=== PATIENT | male | born 1990 | race Caucasian/White ===

== ENCOUNTER 2018-06-05 17:14 | Inpatient (IN) | payer OTHER, SELFPAY ==
[2018-06-05 17:17] VITALS: BP 148/74; PULSE 76; RESP 16; TEMP 36.6; O2SAT 95; BMI 36.8
[2018-06-05] MEDS: Ondansetron 4 MG/2 ML Vial IV (17:51)
[2018-06-05] MEDS: 0.9% Normal Saline 1,000 ML 1000 ML IV (17:51)
[2018-06-05 18:06] LABS: Absolute Lymphocyte Count 3.03 X10^3/ul (0.83-4.51); Absolute Neutrophil Count 5.6 X10^3/uL (2.0-7.7); Basophil# 0.02 X10^3/uL; Basophil% 0.2 % (0-1); Eosinophil# 0.15 X10^3/uL; Eosinophils% 1.6 % (0-5); Hematocrit 47.9 % (40-54); Hemoglobin 16.2 g/dl (13.0-16.5); Lymphocyte # 3.03 X10^3/ul (4.0); Lymphocyte % 32.3 % (19-41); Mean Corp Hgb Conc 33.8 g/gl (32-36); Mean Corpuscular Hgb 29.6 pg (27.0-32.0); Mean Corpuscular Volume 87.4 fL (80-94); Mean Platelet Vol. 10.8 fl (6.2-12.0); Monocyte% 6.4 % (0-10); Neutrophil # 5.57 X10^3/uL (2.7-7.7); Neutrophil % 59.4 % (47-70); Platelet Count 200 K/mm3 (150-450); RBC Distribution Width CV 14.4 % (11.6-14.6); RBC Distribution Width SD 45.9 fl (35.1-43.9); Red Blood Count 5.48 M/mm3 (4.6-6.2); White Blood Count 9.4 K/mm3 (4.4-11.0)
[2018-06-05 18:09] LABS: POSITIVE COUNT NO; POSITIVE DIFFERENTIAL NO; POSITIVE MORPHOLOGY NO
[2018-06-05 18:24] LABS: ALB/GLOB Ratio 1.1 RATIO (0.9-2.4); AST(SGOT) 40 U/L (15-37); Alanine Aminotransfer ALT/SGPT 60 U/L (16-61); Albumin, Serum 3.9 g/dL (3.2-5.0); Alkaline Phosphatase 82 U/L (45-117); Anion Gap 9 (5-15); BUN 8 mg/dL (7-18); Calcium,Total 8.8 mg/dL (8.5-10.1); Chloride 102 mmol/L (98-107); Creatinine, Serum 0.89 mg/dL (0.70-1.30); EST Glomerular Filtration Rate 109 mL/min (>60); Est Glom Filt Rate - Afr Amer 132 mL/min (>60); Estimated Creatinine Clearance 131.61 ml/min; Globulin 3.7 g/dL (2.2-4.2); Glucose 126 mg/dL (74-106); Lipase 141 U/L (73-393); Potassium 3.8 mmol/L (3.5-5.1); Protein, Total 7.6 g/dL (6.4-8.2); Sodium Level 137 mmol/L (136-145)
[2018-06-05 19:02] LABS: Amphetamine Urine VISTA NEGATIVE (<1000 ng/mL); Barbiturate Urine VISTA NEGATIVE (< 200 ng/mL); Benzodiazepine Urine VISTA NEGATIVE (< 200 ng/mL); Cocaine Urine VISTA NEGATIVE (< 300 ng/mL); Ecstacy Urine VISTA POSITIVE (< 500 ng/mL); Methadone Urine VISTA NEGATIVE (< 300 ng/mL); PCP Urine VISTA NEGATIVE (< 25 ng/mL); THC Urine VISTA NEGATIVE (< 50 ng/mL); Vista UDS pH Range 5
--- NOTE | 2018-06-05 19:58 | ED.VISSUMM ---
- ER Visit Summary Date of Service: 06/05/18 Chief Complaint: [Requesting detox from alcohol] History of Present Illness: The patient is a 28 M presents to the emergency department stating that he would like to have detox. Patient states that he last went through an inpatient program in [facility] on May 10. Patient states that he called [facility] and was told to come to the emergency department. Patient states that his last drink was about 3 hours ago. Patient normally drinks about 30 beers a day. Patient states that he is feeling shaky. Complains of noises bothering him and bright lights bothering him. Patient has pins and needle sensation to skin. Complains of feeling sweaty.] Physical Examination: [HEENT-PERRLA, EOMI. Cranial nerves II through XII grossly intact. TMs clear. Mucous membranes moist. No adenopathy. Cardiovascular-regular rate and rhythm without murmur or ectopy Lungs-clear to auscultation, chest wall stable without crepitus or subcu emphysema Abdomen-normoactive bowel sounds, soft, nontender, no rebound or rigidity, no peritoneal signs. Extremities-intact ?4, normal range of motion, normal pulses, atraumatic] Test Results: [CBC with differential obtained showed an white blood cell count of 9.4, hemoglobin 16, hematocrit 40, placed 200. Chemistries unremarkable. LFTs were normal. Lipase is 141. Toxicology screen was positive for MDMA. Alcohol was 207.] Emergency Department Course and Treatment: [Patient was given Zofran 4 mg IV.] Treatment Plan: [Patient case was discussed with hospitalist will evaluate patient for admission] Disposition: [Admit] Impression: [Alcohol withdrawal Request for detox from alcohol to [facility]] This note was generated with [employer] dictation software. It may contain incorrect words, spelling, and punctuation that were not noted in review of the chart prior to signing ED Disposition - Plan for ED Patient: Chief Complaint: Substance Abuse Referrals: Arturo Doctor,Out of [Primary Care Provider] -
--- NOTE | 2018-06-05 20:02 | ED.DCSUM_ITS ---
- ER Visit Summary Date of Service: 06/05/18 Chief Complaint: [Requesting detox from alcohol] History of Present Illness: The patient is a 28 M presents to the emergency department stating that he would like to have detox. Patient states that he last went through an inpatient program in [facility] on May 10. Patient states that he called [facility] and was told to come to the emergency department. Patient states that his last drink was about 3 hours ago. Patient normally drinks about 30 beers a day. Patient states that he is feeling shaky. Complains of noises bothering him and bright lights bothering him. Patient has pins and needle sensation to skin. Complains of feeling sweaty.] Physical Examination: [HEENT-PERRLA, EOMI. Cranial nerves II through XII grossly intact. TMs clear. Mucous membranes moist. No adenopathy. Cardiovascular-regular rate and rhythm without murmur or ectopy Lungs-clear to auscultation, chest wall stable without crepitus or subcu emphysema Abdomen-normoactive bowel sounds, soft, nontender, no rebound or rigidity, no peritoneal signs. Extremities-intact ?4, normal range of motion, normal pulses, atraumatic] Test Results: [CBC with differential obtained showed an white blood cell count of 9.4, hemoglobin 16, hematocrit 40, placed 200. Chemistries unremarkable. LFTs were normal. Lipase is 141. Toxicology screen was positive for MDMA. Alcohol was 207.] Emergency Department Course and Treatment: [Patient was given Zofran 4 mg IV.] Treatment Plan: [Patient case was discussed with hospitalist will evaluate patient for admission] Disposition: [Admit] Impression: [Alcohol withdrawal Request for detox from alcohol to [facility]] This note was generated with [employer] dictation software. It may contain incorrect words, spelling, and punctuation that were not noted in review of the chart prior to signing ED Disposition - Plan for ED Patient: Chief Complaint: Substance Abuse Referrals: Arturo Doctor,Out of [Primary Care Provider] -
[2018-06-05 20:06] VITALS: BP 120/68; PULSE 74; RESP 18; TEMP 36.6; O2SAT 98
[2018-06-05 20:11] VITALS: BP 120/68; PULSE 74; RESP 18; TEMP 36.6; O2SAT 98
[2018-06-05 21:00] VITALS: BP 116/61; PULSE 72; RESP 16; TEMP 37; O2SAT 97
[2018-06-05 21:05] VITALS: BMI 36.8
[2018-06-05 21:07] VITALS: BP 116/61; PULSE 72; RESP 16; TEMP 37; O2SAT 97
--- NOTE | 2018-06-05 21:21 | PCM.HP.STD ---
Problem List (1) Alcohol dependence with withdrawal Status: Acute History of Present Illness Date of Admission: 06/05/18 Chief Complaint: alcohol withdrawal symptoms The patient is a 28 year old M with a significant history of morbid obesity s/p gastric bypass surgery; depression; anxiety and hypertension who presented with alcohol withdrawal symptoms that started few hours before his admission. Patient reported that his last drink was at 3 PM on the day of admission. He drinks 30 bottles of beer per day. He reports that his withdrawal symptoms include nausea, vomiting, shakiness, headache, feeling cold, restless leg, diarrhea, restless legs and abdominal pain. Reportedly in the past he has been to two alcohol rehabilitation centers. His last rehabilitation was at [facility] in [place]. His last rehabilitation was around May 10 - May 17 2018. At the emergency department his ethanol level was 207 and MDMA was positive on urinary screen. His CIWA score at the emergency department was 23. Per emergency department doctor talked to [facility] and he was accepted into the [facility] program. Past Medical History Medical History: Medical History (Last Updated 06/05/18 @ 21:31 by Jose Smith MD) Hypertension I10 Allergies No Known Allergies Allergy (Verified 06/05/18 17:17) Home Medications: Ambulatory Orders Medication Instructions Recorded Bupropion HCl [Bupropion Xl] 300 mg PO DAILY 06/05/18 Metoprolol Succinate 25 mg PO DAILY 06/05/18 Vitamin E 400 unit PO DAILY 06/05/18 Surgical History: gastric bypass Lives: With Family Smoking Status: Current every day smoker Tobacco Use: Cigarettes - *Family History Maternal History Items: Hypertension, - - Depression; anxiety; and depression Paternal History Items: Heart Disease, - - Depression; anxiety; and depression Review of Systems Constitutional: Reports: Anorexia, Chills. Denies: Fever, Weight Change HEENT: Reports: Head Aches. Denies: Sinus Congestion, Sinus Drainage Cardiovascular: Denies: Chest Pain, Palpitations Respiratory: Denies: Cough, Shortness of breath at rest, Sputum production Gastrointestinal: Reports: Abdominal Pain, Diarrhea, Nausea, Vomiting Genitourinary: Denies: Dysuria Musculoskeletal: Denies: Joint Pain, Joint Tenderness Skin: Denies: Rash, Wounds Neurological: Denies: Numbness, Tingling, Focal weakness Psychiatric: Reports: Anxiety, Depression. Denies: Homicidal Ideations, Suicidal Ideations Hematologic/ Lymphatic: Denies: Easy Bruising, Easy Bleeding VTE Information - Inpt Only VTE Present on Admission: No VTE Mechan Device Prophylaxis: None VTE Pharm Prophylaxis ordered?: Yes Patient Problems: Active and Suspected Problems (Last Updated 06/05/18 @ 21:31 by Jose Smith MD) Alcohol dependence with withdrawal (Acute) - Physical Exam General: Alert, Oriented x3, Cooperative HEENT: Atraumatic, PERRLA, EOMI, Normocephalic Neck: Supple, No JVD, Negative Carotid Bruits Lungs: Clear to auscultation, Normal air movement Cardiovascular: Regular rate, No murmurs Abdomen: Bowel Sounds Present, Soft, Non Tender Extremities: No edema, Capillary Refill Less than 3 Seconds Skin: No rashes, No breakdown Musculoskeletal: No Tenderness to Palpation of Joints or Extremities Neurological: Neuro grossly intact, - - Tremors Psych/Mental Status: Normal Affect, Appropriate Vital Signs Temp Pulse Resp BP Pulse Ox 98.6 F 72 16 116/61 97 06/05/18 21:07 06/05/18 21:07 06/05/18 21:07 06/05/18 21:07 06/05/18 21:07 Oxygen Delivery Method Room Air Weight: 119.748 kg Body Mass Index (BMI) 36.8 Laboratory Tests Past 24 Hrs 06/05/18 06/05/18 06/05/18 17:53 17:53 17:53 WBC 9.4 RBC 5.48 Hgb 16.2 Hct 47.9 MCV 87.4 MCH 29.6 MCHC 33.8 RDW 14.4 RDW Differential 45.9 H Plt Count 200 MPV 10.8 Immature Gran % (Auto) 0.100 Neut % (Auto) 59.4 Lymph % (Auto) 32.3 [place] % (Auto) 6.4 Eos % (Auto) 1.6 Baso % (Auto) 0.2 Absolute Neuts (auto) 5.6 Absolute Lymphs (auto) 3.03 Total Counted Not Reportable Sodium 137 Potassium 3.8 Chloride 102 Carbon Dioxide 26.0 Anion Gap 9 BUN 8 Creatinine 0.89 Estim Creat Clear Calc 131.61 Est GFR (MDRD) Af Amer 132 Est GFR (MDRD) Non-Af 109 BUN/Creatinine Ratio 9.0 L Glucose 126 H Calcium 8.8 Total Bilirubin 0.60 AST 40 H ALT 60 Alkaline Phosphatase 82 Total Protein 7.6 Albumin 3.9 Globulin 3.7 Albumin/Globulin Ratio 1.1 Lipase 141 Urine Opiates Screen Urine Methadone Screen Ur Barbiturates Screen Ur Phencyclidine Scrn Ur Amphetamines Screen U Methamphetamin-MDMA U Benzodiazepines Scrn Urine Cocaine Screen U Cannabinoids Screen Ur Drug Screen Comment Ethyl Alcohol 207.0 06/05/18 18:37 WBC RBC Hgb Hct MCV MCH MCHC RDW RDW Differential Plt Count MPV Immature Gran % (Auto) Neut % (Auto) Lymph % (Auto) [place] % (Auto) Eos % (Auto) Baso % (Auto) Absolute Neuts (auto) Absolute Lymphs (auto) Total Counted Sodium Potassium Chloride Carbon Dioxide Anion Gap BUN Creatinine Estim Creat Clear Calc Est GFR (MDRD) Af Amer Est GFR (MDRD) Non-Af BUN/Creatinine Ratio Glucose Calcium Total Bilirubin AST ALT Alkaline Phosphatase Total Protein Albumin Globulin Albumin/Globulin Ratio Lipase Urine Opiates Screen NEGATIVE Urine Methadone Screen NEGATIVE Ur Barbiturates Screen NEGATIVE Ur Phencyclidine Scrn NEGATIVE Ur Amphetamines Screen NEGATIVE U Methamphetamin-MDMA POSITIVE H U Benzodiazepines Scrn NEGATIVE Urine Cocaine Screen NEGATIVE U Cannabinoids Screen NEGATIVE Ur Drug Screen Comment Ethyl Alcohol Assessment/Plan All Active Problems (Last Updated 06/05/18 @ 21:31 by Jose Smith MD) Alcohol dependence with withdrawal (Acute) The patient is a 28 year old M with a significant history of morbid obesity s/p gastric bypass surgery; depression; anxiety and hypertension who presented with alcohol withdrawal symptoms found to have high ethanol level. Alcohol dependence and withdrawal. We will place patient on CIWA protocol with Librium taper. We will continue his metoprolol which should help with withdrawal symptoms too. Folic acid and thiamine ordered. Imodium as needed Requip as needed for restless legs. Anxiety and depression Bupropion continued Positive MDMA Patient denies any use of methamphetamine. Likely false positive from Wellbutrin use. Hypertension On admission his blood pressure was fairly controlled. Metoprolol continued. Tobacco abuse The patient is already on bupropion for anxiety and depression but still smoking. Counseled Nicotine patch ordered. Dry skin Vitamin E continued. DVT Prophylaxis Low risk Ambulate. Code Visit Inpatient E&M: 56285 Init Hosp L3
[2018-06-05] MEDS: hydrOXYzine PAM 25 MG Capsule 50 MG PO (21:28)
[2018-06-05] MEDS: chlordiazePOXIDE 25 MG Capsule PO (21:38)
[2018-06-05 21:47] VITALS: BP 116/61; PULSE 72; RESP 16; TEMP 37
[2018-06-06] VITALS (12 sets, daily range): BP systolic 104–133; BP diastolic 64–81; PULSE 63–99; RESP 16–18; TEMP 36.4–36.8; O2SAT 95–98
[2018-06-06] MEDS: Acetaminophen 325 MG Tablet 650 MG PO (00:35)
[2018-06-06] MEDS: chlordiazePOXIDE 25 MG Capsule PO ×4 (02:42→22:39)
[2018-06-06] MEDS: Dicyclomine 10 MG Capsule 20 MG PO ×3 (02:50→22:42)
[2018-06-06] MEDS: Ondansetron 4 MG/2 ML Vial IV ×2 (02:50→18:26)
[2018-06-06] MEDS: Pramipexole Di-HCl 0.125 MG Tablet PO ×2 (02:55→13:44)
[2018-06-06] MEDS: hydrOXYzine PAM 25 MG Capsule 50 MG PO ×2 (05:55→18:13)
[2018-06-06] MEDS: Folic Acid 1 MG Tablet PO (08:52)
[2018-06-06] MEDS: Multivitamins,Therapeutic Tablet 1 TABLET PO (08:52)
[2018-06-06] MEDS: Vitamin E 400 UNITS Capsule PO (08:53)
[2018-06-06] MEDS: Thiamine Hydrochloride 100 MG Tablet PO (08:53)
[2018-06-06] MEDS: buPROPion (XL) 300 MG TABLET.XL PO (08:53)
[2018-06-06] MEDS: Metoprolol(XL)Succ 25 MG Tablet PO (08:57)
[2018-06-06] MEDS: 0.9% NaCl Peripheral Flush Adult/Peds IV ×3 (09:06→22:39)
--- NOTE | 2018-06-06 09:50 | PN_ITS ---
Patient Problems: Active and Suspected Problems (Last Updated 06/05/18 @ 21:52 by Zafar Harrison) Alcohol dependence with withdrawal (Acute) Subjective: Chief complaint: Follow-up after admission for acute alcohol intoxication/withdrawal. Patient seen and examined. No acute events overnight. He is still symptomatic, no significant improvement. He is shaky but slightly improved compared to last night. Complains of intermittent abdominal cramps. His vital signs are stable. - Physical Exam General: Alert, Oriented x3, Cooperative, No apparent distress HEENT: Atraumatic, PERRLA, EOMI, Normocephalic Oral: Moist Mucosa, No Gingival or Mucosal Lesions/ Ulcerations Neck: Supple, No JVD, Negative Carotid Bruits, Trachea Midline, Thyroid Normal Size and Texture Lungs: Clear to auscultation, Normal air movement, No rhonchi, No wheeze, No rales Cardiovascular: Regular rate, Regular Rhythm, Normal S1, Normal S2, No murmurs, PMI Normal Abdomen: Bowel Sounds Present, Soft, Non Tender, Non-Distended, No Hepato- splenomegaly Extremities: No clubbing, No cyanosis, No edema Skin: No rashes, No breakdown Lymphatic: No Cervical, Supraclavicular, or Inguinal Adenopathy Neurological: Cranial nerves II-XII grossly intact, Motor Exam 5/5 strength throughout Psych/Mental Status: Normal Affect, Appropriate, Alert and oriented to time, place, person, mood and affect Vital Signs Temp Pulse Resp BP Pulse Ox 98.2 F 63 16 115/70 96 06/06/18 06:00 06/06/18 08:57 06/06/18 06:00 06/06/18 06:00 06/06/18 07:00 Oxygen Delivery Method Room Air Weight: 264 lb Body Mass Index (BMI) 36.8 Intake and Output for Last 24 Hours 06/04/18 06/05/18 06/06/18 23:59 23:59 23:59 Intake Total 1999 Balance 1999 Laboratory Tests Past 24 Hrs 06/05/18 06/05/18 06/05/18 17:53 17:53 17:53 WBC 9.4 RBC 5.48 Hgb 16.2 Hct 47.9 MCV 87.4 MCH 29.6 MCHC 33.8 RDW 14.4 RDW Differential 45.9 H Plt Count 200 MPV 10.8 Immature Gran % (Auto) 0.100 Neut % (Auto) 59.4 Lymph % (Auto) 32.3 [place] % (Auto) 6.4 Eos % (Auto) 1.6 Baso % (Auto) 0.2 Absolute Neuts (auto) 5.6 Absolute Lymphs (auto) 3.03 Total Counted Not Reportable Sodium 137 Potassium 3.8 Chloride 102 Carbon Dioxide 26.0 Anion Gap 9 BUN 8 Creatinine 0.89 Estim Creat Clear Calc 131.61 Est GFR (MDRD) Af Amer 132 Est GFR (MDRD) Non-Af 109 BUN/Creatinine Ratio 9.0 L Glucose 126 H Calcium 8.8 Total Bilirubin 0.60 AST 40 H ALT 60 Alkaline Phosphatase 82 Total Protein 7.6 Albumin 3.9 Globulin 3.7 Albumin/Globulin Ratio 1.1 Lipase 141 Urine Opiates Screen Urine Methadone Screen Ur Barbiturates Screen Ur Phencyclidine Scrn Ur Amphetamines Screen U Methamphetamin-MDMA U Benzodiazepines Scrn Urine Cocaine Screen U Cannabinoids Screen Ur Drug Screen Comment Ethyl Alcohol 207.0 06/05/18 18:37 WBC RBC Hgb Hct MCV MCH MCHC RDW RDW Differential Plt Count MPV Immature Gran % (Auto) Neut % (Auto) Lymph % (Auto) [place] % (Auto) Eos % (Auto) Baso % (Auto) Absolute Neuts (auto) Absolute Lymphs (auto) Total Counted Sodium Potassium Chloride Carbon Dioxide Anion Gap BUN Creatinine Estim Creat Clear Calc Est GFR (MDRD) Af Amer Est GFR (MDRD) Non-Af BUN/Creatinine Ratio Glucose Calcium Total Bilirubin AST ALT Alkaline Phosphatase Total Protein Albumin Globulin Albumin/Globulin Ratio Lipase Urine Opiates Screen NEGATIVE Urine Methadone Screen NEGATIVE Ur Barbiturates Screen NEGATIVE Ur Phencyclidine Scrn NEGATIVE Ur Amphetamines Screen NEGATIVE U Methamphetamin-MDMA POSITIVE H U Benzodiazepines Scrn NEGATIVE Urine Cocaine Screen NEGATIVE U Cannabinoids Screen NEGATIVE Ur Drug Screen Comment Ethyl Alcohol Medical Necessity - Tobacco Use Smoking Status: Current every day smoker Tobacco Use: Cigarettes Assessment/Plan All Active Problems (Last Updated 06/05/18 @ 21:52 by Zafar Harrison) Alcohol dependence with withdrawal (Acute) This is a 28 years old male patient presented to the emergency room requesting admission for alcohol detoxification and he was admitted for acute alcohol intoxication/impending withdrawal for treatment. #1 acute alcohol intoxication/withdrawal: Patient has been having symptoms of withdrawal although his last drink was only yesterday afternoon. On admission, his blood alcohol level was 207. He is on folic acid, thiamine, Librium, as needed Mirapex, Vistaril, Imodium, Bentyl and multivitamins. His vital signs are stable. He is still symptomatic. His urine drug screen was positive for methamphetamines. His routine blood work was unremarkable as well as LFT and lipase. I expect that his withdrawal symptoms would worsen in the next 24-48 hours. Plan: Continue same treatment, may need to start him on as needed Ativan if his symptoms start to worsen. #2 hypertension: Blood pressure stable, continue metoprolol. #3 history of atrial fibrillation: This was years ago before his gastric bypass surgery. At this time, his sinus rhythm, rate is controlled. Continue metoprolol. He is not on any anticoagulation likely because of lone A. fib without other medical comorbidities. #4 morbid obesity: Status post gastric bypass surgery. #5 tobacco abuse: Continue NicoDerm patch. #6 DVT prophylaxis: Low-risk patient, no prophylaxis indicated. This note was generated with [employer] dictation software. It may contain incorrect words, spelling, and punctuation that were not noted in checking the note before signing. Code Visit Inpatient E&M: 74128 Subs Hosp L2
--- NOTE | 2018-06-06 15:59 | CHAPLAIN ---
Type of Pastoral Visit _x__ Initial Visit ___ Follow-up Visit ___ On-call Visit ___ General Patient Visit ___ Spiritual Assessment ___ Family Conference ___ Bereavement ___ Rapid Response ___ Code Blue ___ Other (describe below) Pastoral Care Referral From _x__ Patient ___ Family ___ Nurse ___ Physician ___ Certified Physician'S Assistant ___ Environmental Health Nurse ___ Other (describe below) Sacrament/Intervention _x__ Active listening ___ Anointing ___ Cheondoism ___ Bereavement ___ Communion _x__ Christine exploration ___ _x__ Life review _x__ Prayer ___ Reconciliation ___ Sacrament of Sick _x__ Supportive presence ___ Wedding ___ Other (describe below) Pastoral Comments patient is very open to talk about his life history and spoke to mold yard supervisor about traumas, relational issues, and health; pt was a pastoral student earlier in life and was very knowledgeable of his spiritual needs; pt sought child welfare counselor and prayer;
[2018-06-07] MEDS: chlordiazePOXIDE 25 MG Capsule PO ×3 (06:34→22:10)
[2018-06-07 06:37] VITALS: BP 122/72; PULSE 57; RESP 16; TEMP 36.6
--- NOTE | 2018-06-07 08:14 | PCM.PROGNOTE ---
Patient Problems: Active and Suspected Problems (Last Updated 06/05/18 @ 21:52 by Zafar Harrison) Alcohol dependence with withdrawal (Acute) Subjective: Chief complaint: Follow-up after admission for acute alcohol intoxication/withdrawal. Patient seen and examined. No acute events overnight. Today, he is feeling better, less anxious and shaky. He was able to sleep last night. His vital signs are stable. - Physical Exam General: Alert, Oriented x3, Cooperative, No apparent distress HEENT: Atraumatic, PERRLA, EOMI, Normocephalic Oral: Moist Mucosa, No Gingival or Mucosal Lesions/ Ulcerations Neck: Supple, No JVD, Negative Carotid Bruits, Trachea Midline, Thyroid Normal Size and Texture Lungs: Clear to auscultation, Normal air movement, No rhonchi, No wheeze, No rales Cardiovascular: Regular rate, Regular Rhythm, Normal S1, Normal S2, PMI Normal Abdomen: Bowel Sounds Present, Soft, Non Tender, Non-Distended, No Hepato-splenomegaly Extremities: No clubbing, No cyanosis, No edema Skin: No rashes, No breakdown Lymphatic: No Cervical, Supraclavicular, or Inguinal Adenopathy Neurological: Cranial nerves II-XII grossly intact, Neuro grossly intact Psych/Mental Status: Normal Affect, Appropriate, Alert and oriented to time, place, person, mood and affect Vital Signs Temp Pulse Resp BP Pulse Ox 97.8 F 57 L 16 122/72 H 98 06/07/18 06:37 06/07/18 06:37 06/07/18 06:37 06/07/18 06:37 06/06/18 18:00 Oxygen Delivery Method Room Air Weight: 264 lb Body Mass Index (BMI) 36.8 Intake and Output for Last 24 Hours 06/05/18 06/06/18 06/07/18 23:59 23:59 23:59 Intake Total 3275 / 3275 1000 / 1000 Balance 3275 / 3275 1000 / 1000 Medical Necessity - Tobacco Use Smoking Status: Current every day smoker Tobacco Use: Cigarettes Assessment/Plan All Active Problems (Last Updated 06/05/18 @ 21:52 by Zafar Harrison) Alcohol dependence with withdrawal (Acute) This is a 28 years old male patient presented to the emergency room requesting admission for alcohol detoxification and he was admitted for acute alcohol intoxication/impending withdrawal for treatment. #1 acute alcohol intoxication/withdrawal: he is on folic acid, thiamine, Librium, as needed Mirapex, Vistaril, Imodium, Bentyl and multivitamins. On admission, his blood alcohol level was 207. His vital signs are stable. Today, he reported some improvement of his symptoms, less shaky and restless. His urine drug screen was positive for methamphetamines. His routine blood work was unremarkable as well as LFT and lipase. Plan to continue same treatment. #2 hypertension: Blood pressure stable, continue metoprolol. #3 history of atrial fibrillation: This was years ago before his gastric bypass surgery. Remains in sinus rhythm, rate is controlled. Continue metoprolol. He is not on any anticoagulation likely because of lone A. fib without other medical comorbidities. #4 morbid obesity: Status post gastric bypass surgery. #5 tobacco abuse: Continue NicoDerm patch. #6 DVT prophylaxis: Low-risk patient, no prophylaxis indicated. This note was generated with [employer] dictation software. It may contain incorrect words, spelling, and punctuation that were not noted in checking the note before signing. Code Visit Inpatient E&M: 57655 Subs Hosp L2
--- NOTE | 2018-06-07 08:17 | PN_ITS ---
Patient Problems: Active and Suspected Problems (Last Updated 06/05/18 @ 21:52 by Zafar Harrison) Alcohol dependence with withdrawal (Acute) Subjective: Chief complaint: Follow-up after admission for acute alcohol intoxication/withdrawal. Patient seen and examined. No acute events overnight. Today, he is feeling better, less anxious and shaky. He was able to sleep last night. His vital signs are stable. - Physical Exam General: Alert, Oriented x3, Cooperative, No apparent distress HEENT: Atraumatic, PERRLA, EOMI, Normocephalic Oral: Moist Mucosa, No Gingival or Mucosal Lesions/ Ulcerations Neck: Supple, No JVD, Negative Carotid Bruits, Trachea Midline, Thyroid Normal Size and Texture Lungs: Clear to auscultation, Normal air movement, No rhonchi, No wheeze, No rales Cardiovascular: Regular rate, Regular Rhythm, Normal S1, Normal S2, PMI Normal Abdomen: Bowel Sounds Present, Soft, Non Tender, Non-Distended, No Hepato-s plenomegaly Extremities: No clubbing, No cyanosis, No edema Skin: No rashes, No breakdown Lymphatic: No Cervical, Supraclavicular, or Inguinal Adenopathy Neurological: Cranial nerves II-XII grossly intact, Neuro grossly intact Psych/Mental Status: Normal Affect, Appropriate, Alert and oriented to time, place, person, mood and affect Vital Signs Temp Pulse Resp BP Pulse Ox 97.8 F 57 L 16 122/72 H 98 06/07/18 06:37 06/07/18 06:37 06/07/18 06:37 06/07/18 06:37 06/06/18 18:00 Oxygen Delivery Method Room Air Weight: 264 lb Body Mass Index (BMI) 36.8 Intake and Output for Last 24 Hours 06/05/18 06/06/18 06/07/18 23:59 23:59 23:59 Intake Total 3275 / 3275 1000 / 1000 Balance 3275 / 3275 1000 / 1000 Medical Necessity - Tobacco Use Smoking Status: Current every day smoker Tobacco Use: Cigarettes Assessment/Plan All Active Problems (Last Updated 06/05/18 @ 21:52 by Zafar Harrison) Alcohol dependence with withdrawal (Acute) This is a 28 years old male patient presented to the emergency room requesting admission for alcohol detoxification and he was admitted for acute alcohol intoxication/impending withdrawal for treatment. #1 acute alcohol intoxication/withdrawal: he is on folic acid, thiamine, Librium, as needed Mirapex, Vistaril, Imodium, Bentyl and multivitamins. On admission, his blood alcohol level was 207. His vital signs are stable. Today, he reported some improvement of his symptoms, less shaky and restless. His urine drug screen was positive for methamphetamines. His routine blood work was unremarkable as well as LFT and lipase. Plan to continue same treatment. #2 hypertension: Blood pressure stable, continue metoprolol. #3 history of atrial fibrillation: This was years ago before his gastric bypass surgery. Remains in sinus rhythm, rate is controlled. Continue metoprolol. He is not on any anticoagulation likely because of lone A. fib without other medical comorbidities. #4 morbid obesity: Status post gastric bypass surgery. #5 tobacco abuse: Continue NicoDerm patch. #6 DVT prophylaxis: Low-risk patient, no prophylaxis indicated. This note was generated with [employer] dictation software. It may contain incorrect words, spelling, and punctuation that were not noted in checking the note before signing. Code Visit Inpatient E&M: 35147 Subs Hosp L2
[2018-06-07] MEDS: 0.9% NaCl Peripheral Flush Adult/Peds IV (09:49)
[2018-06-07] MEDS: Multivitamins,Therapeutic Tablet 1 TABLET PO (09:58)
[2018-06-07] MEDS: Vitamin E 400 UNITS Capsule PO (09:58)
[2018-06-07] MEDS: buPROPion (XL) 300 MG TABLET.XL PO (09:58)
[2018-06-07] MEDS: Folic Acid 1 MG Tablet PO (09:58)
[2018-06-07 09:59] VITALS: PULSE 62
[2018-06-07] MEDS: Thiamine Hydrochloride 100 MG Tablet PO (09:59)
[2018-06-07] MEDS: Metoprolol(XL)Succ 25 MG Tablet PO (09:59)
[2018-06-07 10:00] VITALS: BP 122/76; PULSE 62; RESP 16; TEMP 36.7
[2018-06-07] MEDS: hydrOXYzine PAM 25 MG Capsule 50 MG PO ×2 (10:37→17:21)
[2018-06-07] MEDS: Ondansetron 4 MG/2 ML Vial IV (10:37)
[2018-06-07] MEDS: Dicyclomine 10 MG Capsule 20 MG PO (10:37)
[2018-06-07 11:40] VITALS: O2SAT 99
[2018-06-07] MEDS: Pramipexole Di-HCl 0.125 MG Tablet PO (14:20)
--- NOTE | 2018-06-07 14:52 | NURSING ---
IV attempt x2 without success.
[2018-06-07 15:05] VITALS: BP 106/61; PULSE 66; RESP 18; TEMP 36.9
--- NOTE | 2018-06-07 16:32 | CHAPLAIN ---
Type of Pastoral Visit ___ Initial Visit _x__ Follow-up Visit ___ On-call Visit ___ General Patient Visit ___ Spiritual Assessment ___ Family Conference ___ Bereavement ___ Rapid Response ___ Code Blue ___ Other (describe below) Pastoral Care Referral From _x__ Patient ___ Family ___ Nurse ___ Physician ___ Blade Worker ___ Valet Runner ___ Other (describe below) Sacrament/Intervention ___ Active listening ___ Anointing ___ Voodoo ___ Bereavement ___ Communion ___ Christine exploration ___ ___ Life review _x__ Prayer ___ Reconciliation ___ Sacrament of Sick _x__ Supportive presence ___ Wedding ___ Other (describe below) Pastoral Comments
[2018-06-07 22:15] VITALS: BP 117/81; PULSE 65; RESP 16; TEMP 36.6
[2018-06-08 02:59] VITALS: BP 117/83; PULSE 61; RESP 16; TEMP 36.3
[2018-06-08] MEDS: hydrOXYzine PAM 25 MG Capsule 50 MG PO ×2 (02:59→10:06)
--- NOTE | 2018-06-08 08:35 | DCINST_ITS ---
- Discharge Diagnoses Current Active Problems: Current Active and Chronic Problems (Last Updated 06/05/18 @ 21:52 by Zafar Harrison) Alcohol dependence with withdrawal (Acute) You will use the following diet at home:: Regular Your food should be the consistency of: Regular Discharge Activity: Return to Normal Activity Weight Bearing Status: Full weight bearing Call your doctor if you observe: Fever of 101 or Higher, Shortness of breath, Dizziness, Fainting spells, Chest pain, Increased palpitations (irregular heartbeat), Uncontrolled pain Instructions: Alcohol Withdrawal: What to Expect, Alcoholism: How to be Part of the Solution, Alcoholism: Getting Help Allergies/Adverse Reactions: Allergies No Known Allergies Allergy (Verified 06/05/18 17:17) Medications to take at Discharge Bupropion HCl [Bupropion Xl] 300 mg PO DAILY 06/05/18 Metoprolol Succinate 25 mg PO DAILY 06/05/18 Vitamin E 400 unit PO DAILY 06/05/18 Chlordiazepoxide [Librium] 25 mg PO TID PRN PRN #30 cap 06/08/18 Folic Acid 1 mg PO DAILYCM #30 tab 06/08/18 Thiamine Hydrochloride [Vitamin B1] 100 mg PO DAILYCM #30 tab 06/08/18 The following prescriptions were given: Chlordiazepoxide [Librium] 25 mg PO TID PRN PRN #30 cap PRN Reason: Alcohol Withdrawal Folic Acid 1 mg PO DAILYCM #30 tab Thiamine Hydrochloride [Vitamin B1] 100 mg PO DAILYCM #30 tab Primary Care Physician: [facility] Doctor,Out of [Primary Care Provider] - Please follow up with your Primary Care Physician in: 2-4 weeks. Test Results: Test results from this visit will be discussed in further detail at your follow- up appointment, if applicable.
[2018-06-08 09:45] VITALS: PULSE 66
[2018-06-08] MEDS: Metoprolol(XL)Succ 25 MG Tablet PO (09:45)
[2018-06-08] MEDS: Thiamine Hydrochloride 100 MG Tablet PO (09:45)
[2018-06-08] MEDS: Multivitamins,Therapeutic Tablet 1 TABLET PO (09:45)
[2018-06-08] MEDS: Folic Acid 1 MG Tablet PO (09:45)
[2018-06-08] MEDS: Vitamin E 400 UNITS Capsule PO (09:46)
[2018-06-08] MEDS: buPROPion (XL) 300 MG TABLET.XL PO (09:46)
[2018-06-08 09:48] VITALS: BP 131/78; PULSE 66; RESP 18; TEMP 36.6
--- NOTE | 2018-06-08 10:02 | NURSING ---
Pt is Finishing up Breakfast. States My Anxiety is threw the roof. This nurse will medicate with Vistaril.
--- NOTE | 2018-06-08 10:46 | NURSING ---
Handout from Ángel given on Alcohol Withdrawal:What to Expect and Alcoholism: How to be Part of The Solution.
[2018-06-08] MEDS: chlordiazePOXIDE 25 MG Capsule PO (10:49)
--- NOTE | 2018-06-08 11:37 | DS.PCM_ITS ---
Discharge Date and Diagnosis Date of Admission: 06/05/18 Date of Discharge: 06/08/18 - Primary Discharge Diagnosis Acute alcohol withdrawal/intoxication, admitted for medical stabilization. Hospital Course and Treatment Consultations 06/05/18 20:51 Consult: Eliu [facility] Routine Consulting Provider: Consulted Physician Type:: Other * Specify below * Reason for consult:: Etoh withdrawal Operations: None Procedures: None Summary of Care Provided: Patient seen and examined on the day of discharge and appeared to be stable to be discharged home. His symptoms continue to improve and he passed 72 hours after last drink. His vital signs are stable. The patient is a 28 year old M presented to the emergency department requesting admission for alcohol detoxification. Upon admission, patient was found to have blood alcohol level of 207. He came in because of symptoms of shakiness, anxiety, restlessness, insomnia and abdominal cramps. He was treated with t apering course of Librium, vitamin supplements folic acid, thiamine and multivitamins. Also was treated with as needed Mirapex, Vistaril, Imodium, Bentyl as well. His routine blood work was unremarkable. Lipase and LFTs were normal. Urine drug screen was positive for multivitamins. Patient had a history of alcohol abuse and was admitted for detoxification in the last couple of months but he relapsed. With above-mentioned treatment, patient symptoms improved. He did not have significant symptoms of alcohol withdrawal. His symptoms was only an anxiety, restlessness and shakiness. With treatment, symptoms improved. His vital signs remained stable, blood pressure remained stable as well as his heart rate. He passed the 72 hours window after his last drink. On the day of discharge, patient continued to report improvement of his symptoms and his vital signs remained stable. Patient discharged home in a stable medical condition, discharged on Librium as needed, do supplement of f olic acid and thiamine, continued on metoprolol and bupropion, counseled regarding the short-term as well as long-term complications of alcoholism and need to quit drinking alcohol, recommended follow-up with PCP in 2-4 weeks. - Physical Exam General: Alert, Oriented x3, Cooperative, No apparent distress HEENT: Atraumatic, PERRLA, EOMI, Normocephalic Oral: Moist Mucosa, No Gingival or Mucosal Lesions/ Ulcerations Neck: Supple, No JVD, Negative Carotid Bruits, Trachea Midline, Thyroid Normal Size and Texture Lungs: Clear to auscultation, Normal air movement, No rhonchi, No wheeze, No rales Cardiovascular: Regular rate, Regular Rhythm, Normal S1, Normal S2, No murmurs Abdomen: Bowel Sounds Present, Soft, Non Tender, Non-Distended, No Hepato- splenomegaly Extremities: No clubbing, No cyanosis, No edema Skin: No rashes, No breakdown Lymphatic: No Cervical, Supraclavicular, or Inguinal Adenopathy Neurological: Cranial nerves II-XII grossly intact, Neuro grossly intact Psych/Mental Status: Normal Affect, Appropriate Vital Signs Temp Pulse Resp BP Pulse Ox 97.9 F 66 18 131/78 H 99 06/08/18 09:48 06/08/18 09:48 06/08/18 09:48 06/08/18 09:48 06/07/18 11:40 Oxygen Delivery Method Nasal Cannula Weight: 264 lb Body Mass Index (BMI) 36.8 Intake and Output for Last 24 Hours 06/06/18 06/07/18 06/08/18 23:59 23:59 23:59 Intake Total 3275 / 3275 1500 / 1500 Balance 3275 / 3275 1500 / 1500 Discharge Activity: Return to Normal Activity Weight Bearing Status: Full weight bearing Call your doctor if you observe: Fever of 101 or Higher, Shortness of breath, Dizziness, Fainting spells, Chest pain, Increased palpitations (irregular heartbeat), Uncontrolled pain Home Medications: Medications to take at Discharge Bupropion HCl [Bupropion Xl] 300 mg PO DAILY 06/05/18 Metoprolol Succinate 25 mg PO DAILY 06/05/18 Vitamin E 400 unit PO DAILY 06/05/18 Chlordiazepoxide [Librium] 25 mg PO TID PRN PRN #30 cap 06/08/18 Folic Acid 1 mg PO DAILYCM #30 tab 06/08/18 Thiamine Hydrochloride [Vitamin B1] 100 mg PO DAILYCM #30 tab 06/08/18 Following Prescrptions Were Given to Patient: Chlordiazepoxide [Librium] 25 mg PO TID PRN PRN #30 cap PRN Reason: Alcohol Withdrawal Folic Acid 1 mg PO DAILYCM #30 tab Thiamine Hydrochloride [Vitamin B1] 100 mg PO DAILYCM #30 tab Primary Care Physician: [facility] Doctor,Out of [Primary Care Provider] - Please follow up with your Primary Care Physician in: 2-4 weeks. Patient Instructions: Alcoholism: How to be Part of the Solution, Alcoholism: Getting Help, Alcohol Withdrawal: What to Expect Disposition: Home Minutes spent on discharge:: 26 Patient Condition:: Stable Medical Necessity - Tobacco Use Smoking Status: Current every day smoker Tobacco Use: Cigarettes Meaningful Use Info Meaningful Use Diagnoses (Choose all that apply): None applicable Code Visit Inpatient E&M: 54048 Disch Hosp
== END 2018-06-08 11:20 | disposition home or self-care (01) | DRG 897 ==
LOC: ED 17:57 → MS2 20:11
PROVIDERS: Admitting Provider Hospitalist; Emergency Provider Emergency Medicine; Referring Provider Hospitalist; Visit Provider Hospitalist
DX: F10.239 Alcohol dependence with withdrawal, unspecified (principal); F10.229 Alcohol dependence with intoxication, unspecified; I10 Essential (primary) hypertension; Y90.7 Blood alcohol level of 200-239 mg/100 ml; F17.210 Nicotine dependence, cigarettes, uncomplicated; Z98.84 Bariatric surgery status; E66.01 Morbid (severe) obesity due to excess calories; Z68.36 Body mass index [BMI] 36.0-36.9, adult
CPT/HCPCS: 80053; 80307; 80320; 83690; 85025; 99284; 99406; J7030; A4216; G0480; J2405; J3490